=== PATIENT | female | born 1955 | race Two or more races ===

== ENCOUNTER 2017-11-10 09:29 | Outpatient (CLI) | payer OTHER | END 2017-11-10 09:45 | disposition home or self-care (01) | LOC: LAB 09:29 | DX: E55.9 Vitamin D deficiency, unspecified (principal); E11.9 Type 2 diabetes mellitus without complications; E78.00 Pure hypercholesterolemia, unspecified; N39.0 Urinary tract infection, site not specified; R82.79 Other abnormal findings on microbiological examination of urine ==

== ENCOUNTER 2017-11-24 13:54 | Outpatient (CLI) | payer OTHER | END 2017-11-24 14:04 | disposition home or self-care (01) | LOC: MAMO-SONO 13:54 | DX: Z12.31 Encounter for screening mammogram for malignant neoplasm of breast (principal); Z87.898 Personal history of other specified conditions; N61.0 Mastitis without abscess ==

== ENCOUNTER 2017-12-08 12:53 | Outpatient (CLI) | payer OTHER | END 2017-12-08 13:11 | disposition home or self-care (01) | LOC: NUCLEAR 12:53 | DX: M81.0 Age-related osteoporosis without current pathological fracture (principal) ==

== ENCOUNTER 2018-01-24 14:37 | Outpatient (CLI) | payer OTHER | END 2018-01-24 14:48 | disposition home or self-care (01) | LOC: LAB 14:37 | DX: N39.0 Urinary tract infection, site not specified (principal); R82.79 Other abnormal findings on microbiological examination of urine ==

== ENCOUNTER 2018-02-03 12:08 | Outpatient (CLI) | payer OTHER | END 2018-02-03 12:17 | disposition home or self-care (01) | LOC: LAB 12:08 | DX: E78.89 Other lipoprotein metabolism disorders (principal); M54.5 Low back pain; E03.8 Other specified hypothyroidism; E55.9 Vitamin D deficiency, unspecified; E66.8 Other obesity; G62.89 Other specified polyneuropathies; M54.31 Sciatica, right side; I10 Essential (primary) hypertension; M89.8X8 Other specified disorders of bone, other site ==

== ENCOUNTER 2018-05-24 16:50 | Outpatient (CLI) | payer OTHER | END 2018-05-24 18:13 | disposition home or self-care (01) | LOC: NST 16:50 → EDBD 16:50 → NST 18:13 | DX: Z34.83 Encounter for supervision of other normal pregnancy, third trimester (principal) ==

== ENCOUNTER → 2018-06-09 12:52 | Outpatient (CLI) | payer OTHER | END | disposition home or self-care (01) | LOC: LAB 12:52 → EDBD 12:52 | DX: E78.89 Other lipoprotein metabolism disorders (principal); M54.5 Low back pain; E03.8 Other specified hypothyroidism; E55.9 Vitamin D deficiency, unspecified; M89.9 Disorder of bone, unspecified; E66.8 Other obesity; G62.89 Other specified polyneuropathies; M54.31 Sciatica, right side; I10 Essential (primary) hypertension ==

== ENCOUNTER 2018-06-24 09:36 | Outpatient (CLI) | payer OTHER | END 2018-06-24 09:38 | disposition home or self-care (01) | LOC: SONOGRAMA 09:36 | DX: R10.84 Generalized abdominal pain (principal) ==

== ENCOUNTER 2018-11-15 09:41 | Outpatient (CLI) | payer OTHER | END 2018-11-15 13:05 | disposition HB | LOC: LAB 09:41 | DX: N95.1 Menopausal and female climacteric states (principal); L68.0 Hirsutism ==

== ENCOUNTER 2018-12-13 13:24 | Outpatient (CLI) | payer OTHER | END 2018-12-13 14:47 | disposition home or self-care (01) | LOC: MAMO-SONO 13:24 | DX: Z12.31 Encounter for screening mammogram for malignant neoplasm of breast (principal); Z87.898 Personal history of other specified conditions; N64.89 Other specified disorders of breast ==

== ENCOUNTER 2019-01-12 10:03 | Outpatient (CLI) | payer OTHER | END 2019-01-12 10:42 | disposition home or self-care (01) | LOC: LAB 10:03 | DX: E78.49 Other hyperlipidemia (principal); M54.5 Low back pain; E03.8 Other specified hypothyroidism; E55.9 Vitamin D deficiency, unspecified; M89.8X8 Other specified disorders of bone, other site; E66.8 Other obesity; G62.89 Other specified polyneuropathies; M54.31 Sciatica, right side; I10 Essential (primary) hypertension ==

== ENCOUNTER 2019-03-15 14:43 | Outpatient (CLI) | payer OTHER | END 2019-03-15 14:48 | disposition home or self-care (01) | LOC: LAB 14:43 | DX: N39.0 Urinary tract infection, site not specified (principal) ==

== ENCOUNTER 2019-04-17 13:09 | Outpatient (CLI) | payer OTHER | END 2019-04-17 13:15 | disposition home or self-care (01) | LOC: LAB 13:09 | DX: E78.49 Other hyperlipidemia (principal); M54.5 Low back pain; E03.8 Other specified hypothyroidism; E55.9 Vitamin D deficiency, unspecified; M89.8X8 Other specified disorders of bone, other site; E66.8 Other obesity; G62.89 Other specified polyneuropathies; M54.31 Sciatica, right side; I10 Essential (primary) hypertension; Z12.11 Encounter for screening for malignant neoplasm of colon; D64.89 Other specified anemias; N95.1 Menopausal and female climacteric states; C51.9 Malignant neoplasm of vulva, unspecified; N30.00 Acute cystitis without hematuria; A64 Unspecified sexually transmitted disease; R97.8 Other abnormal tumor markers; R79.89 Other specified abnormal findings of blood chemistry ==

== ENCOUNTER 2019-07-26 11:41 | Outpatient (CLI) | payer OTHER | END 2019-07-26 11:46 | disposition home or self-care (01) | LOC: LAB 11:41 | DX: E78.49 Other hyperlipidemia (principal); M54.5 Low back pain; E03.8 Other specified hypothyroidism; E55.9 Vitamin D deficiency, unspecified; M89.8X8 Other specified disorders of bone, other site; E66.8 Other obesity; G62.89 Other specified polyneuropathies; M54.31 Sciatica, right side; I10 Essential (primary) hypertension ==

== ENCOUNTER 2019-10-25 12:03 | Outpatient (CLI) | payer OTHER | END 2019-10-25 12:11 | disposition home or self-care (01) | LOC: LAB 12:03 | DX: E78.89 Other lipoprotein metabolism disorders (principal); M54.5 Low back pain; E03.8 Other specified hypothyroidism; E55.9 Vitamin D deficiency, unspecified; M89.8X8 Other specified disorders of bone, other site; E66.8 Other obesity; G62.89 Other specified polyneuropathies; I10 Essential (primary) hypertension ==

== ENCOUNTER 2020-01-24 12:37 | Outpatient (CLI) | payer OTHER | END 2020-01-24 12:42 | disposition home or self-care (01) | LOC: LAB 12:37 | DX: E78.89 Other lipoprotein metabolism disorders (principal); M54.5 Low back pain; E03.8 Other specified hypothyroidism; E55.9 Vitamin D deficiency, unspecified; M89.8X8 Other specified disorders of bone, other site; E66.8 Other obesity; G62.89 Other specified polyneuropathies; M54.31 Sciatica, right side; I10 Essential (primary) hypertension; N39.0 Urinary tract infection, site not specified ==

== ENCOUNTER → 2020-01-24 | Outpatient (CLI) | payer OTHER | END | disposition home or self-care (01) | LOC: MAMO-SONO 13:56 | DX: Z12.31 Encounter for screening mammogram for malignant neoplasm of breast (principal); Z87.898 Personal history of other specified conditions; N60.11 Diffuse cystic mastopathy of right breast; N60.12 Diffuse cystic mastopathy of left breast ==

== ENCOUNTER 2020-03-06 12:46 | Outpatient (CLI) | payer OTHER | END 2020-03-06 12:49 | disposition home or self-care (01) | LOC: LAB 12:46 | DX: R53.1 Weakness (principal) ==

== ENCOUNTER 2020-03-19 13:25 | Outpatient (CLI) | payer OTHER | END 2020-03-19 13:27 | disposition home or self-care (01) | LOC: NUCLEAR 13:25 | PROVIDERS: ATTEND Obstetrics & Gynecology | DX: M81.0 Age-related osteoporosis without current pathological fracture (principal) ==

== ENCOUNTER 2020-05-01 13:35 | Outpatient (CLI) | payer OTHER | END 2020-05-01 13:40 | disposition home or self-care (01) | LOC: LAB 13:35 | PROVIDERS: ATTEND Internal Medicine | DX: E78.89 Other lipoprotein metabolism disorders (principal); M54.5 Low back pain; E03.8 Other specified hypothyroidism; E55.9 Vitamin D deficiency, unspecified; M89.8X8 Other specified disorders of bone, other site; E66.8 Other obesity; M54.31 Sciatica, right side; I10 Essential (primary) hypertension; N39.0 Urinary tract infection, site not specified; G62.89 Other specified polyneuropathies; Z12.11 Encounter for screening for malignant neoplasm of colon; D64.89 Other specified anemias; E11.9 Type 2 diabetes mellitus without complications; E78.00 Pure hypercholesterolemia, unspecified ==

== ENCOUNTER 2020-09-04 12:23 | Outpatient (CLI) | payer OTHER | END 2020-09-04 15:00 | disposition home or self-care (01) | LOC: LAB 12:23 | PROVIDERS: ATTEND Internal Medicine | DX: E78.89 Other lipoprotein metabolism disorders (principal); M54.5 Low back pain; E03.8 Other specified hypothyroidism; E55.9 Vitamin D deficiency, unspecified; M89.8X8 Other specified disorders of bone, other site; E66.8 Other obesity; G62.89 Other specified polyneuropathies; M54.31 Sciatica, right side; I10 Essential (primary) hypertension; N39.0 Urinary tract infection, site not specified ==

== ENCOUNTER 2020-09-30 13:21 | Outpatient (CLI) | payer OTHER | END 2020-09-30 13:26 | disposition home or self-care (01) | LOC: LAB 13:21 | PROVIDERS: ATTEND Obstetrics & Gynecology | DX: N95.1 Menopausal and female climacteric states (principal); L68.0 Hirsutism ==

== ENCOUNTER 2020-12-04 13:21 | Outpatient (CLI) | payer OTHER | END 2020-12-04 13:25 | disposition home or self-care (01) | LOC: LAB 13:21 | PROVIDERS: ATTEND Internal Medicine | DX: L71.8 Other rosacea (principal); D25.2 Subserosal leiomyoma of uterus; N39.0 Urinary tract infection, site not specified; I10 Essential (primary) hypertension; M54.31 Sciatica, right side; G62.89 Other specified polyneuropathies; E66.8 Other obesity; M89.8X0 Other specified disorders of bone, multiple sites; E55.9 Vitamin D deficiency, unspecified; E03.8 Other specified hypothyroidism; M54.5 Low back pain; E78.89 Other lipoprotein metabolism disorders ==

== ENCOUNTER 2021-03-14 13:46 | Outpatient (CLI) | payer OTHER | END 2021-03-14 13:50 | disposition home or self-care (01) | LOC: LAB 13:46 | PROVIDERS: ATTEND Internal Medicine | DX: E78.9 Disorder of lipoprotein metabolism, unspecified (principal); E03.9 Hypothyroidism, unspecified; E55.9 Vitamin D deficiency, unspecified; E66.8 Other obesity; I10 Essential (primary) hypertension; N39.0 Urinary tract infection, site not specified; D25.2 Subserosal leiomyoma of uterus; M54.5 Low back pain; M89.9 Disorder of bone, unspecified; G62.9 Polyneuropathy, unspecified; M54.31 Sciatica, right side; L71.8 Other rosacea ==

== ENCOUNTER 2021-03-17 14:07 | Outpatient (CLI) | payer OTHER | END 2021-03-17 14:16 | disposition home or self-care (01) | LOC: MAMO-SONO 14:07 | PROVIDERS: ATTEND Obstetrics & Gynecology | DX: Z12.31 Encounter for screening mammogram for malignant neoplasm of breast (principal); N61.0 Mastitis without abscess ==

== ENCOUNTER → 2021-06-27 09:48 | Outpatient (CLI) | payer OTHER | END | disposition home or self-care (01) | LOC: LAB 09:48 | PROVIDERS: ATTEND Internal Medicine | DX: E78.89 Other lipoprotein metabolism disorders (principal); M54.59 Other low back pain; E03.8 Other specified hypothyroidism; E55.9 Vitamin D deficiency, unspecified; M89.8X8 Other specified disorders of bone, other site; E66.8 Other obesity; G62.89 Other specified polyneuropathies; M54.31 Sciatica, right side; I10 Essential (primary) hypertension; N39.0 Urinary tract infection, site not specified; L71.8 Other rosacea; D25.2 Subserosal leiomyoma of uterus ==

== ENCOUNTER 2021-10-09 13:07 | Outpatient (CLI) | payer OTHER | END 2021-10-09 13:12 | disposition home or self-care (01) | LOC: LAB 13:07 | PROVIDERS: ATTEND Internal Medicine | DX: D25.2 Subserosal leiomyoma of uterus (principal); L71.8 Other rosacea; M54.31 Sciatica, right side; M54.59 Other low back pain; E03.8 Other specified hypothyroidism; E55.9 Vitamin D deficiency, unspecified ==

== ENCOUNTER 2022-01-05 13:16 | Outpatient (CLI) | payer OTHER | END 2022-01-05 13:17 | disposition home or self-care (01) | LOC: LAB 13:16 | PROVIDERS: ATTEND Internal Medicine | DX: D25.2 Subserosal leiomyoma of uterus (principal); L71.8 Other rosacea; M54.31 Sciatica, right side; M54.59 Other low back pain; E03.9 Hypothyroidism, unspecified; E55.9 Vitamin D deficiency, unspecified ==

== ENCOUNTER 2022-01-21 13:52 | Outpatient (CLI) | payer OTHER | END 2022-01-21 13:59 | disposition home or self-care (01) | LOC: LAB 13:52 | PROVIDERS: ATTEND Obstetrics & Gynecology | DX: N39.0 Urinary tract infection, site not specified (principal) ==

== ENCOUNTER 2022-04-16 16:27 | Outpatient (CLI) | payer OTHER | END 2022-04-16 16:31 | disposition home or self-care (01) | LOC: LAB 16:27 | PROVIDERS: ATTEND Internal Medicine | DX: D25.2 Subserosal leiomyoma of uterus (principal); L71.8 Other rosacea; M54.31 Sciatica, right side; M54.50 Low back pain, unspecified; E03.9 Hypothyroidism, unspecified; E55.9 Vitamin D deficiency, unspecified; N39.0 Urinary tract infection, site not specified ==

== ENCOUNTER 2022-04-30 13:17 | Outpatient (CLI) | payer OTHER | END 2022-04-30 14:07 | disposition home or self-care (01) | LOC: MAMO-SONO 13:17 | PROVIDERS: ATTEND Obstetrics & Gynecology | DX: Z12.31 Encounter for screening mammogram for malignant neoplasm of breast (principal); N60.11 Diffuse cystic mastopathy of right breast ==

== ENCOUNTER 2022-07-16 13:16 | Outpatient (CLI) | payer OTHER | END 2022-07-16 13:34 | disposition home or self-care (01) | LOC: LAB 13:16 | PROVIDERS: ATTEND Internal Medicine | DX: D25.2 Subserosal leiomyoma of uterus (principal); L71.8 Other rosacea; M54.31 Sciatica, right side; M54.50 Low back pain, unspecified; E03.9 Hypothyroidism, unspecified; E55.9 Vitamin D deficiency, unspecified; N39.0 Urinary tract infection, site not specified ==

== ENCOUNTER 2022-10-19 12:25 | Outpatient (CLI) | payer OTHER | END 2022-10-19 12:26 | disposition home or self-care (01) | LOC: LAB 12:25 | PROVIDERS: ATTEND Obstetrics & Gynecology | DX: L68.0 Hirsutism (principal); N95.1 Menopausal and female climacteric states ==

== ENCOUNTER 2022-11-11 11:40 | Outpatient (CLI) | payer OTHER | END 2022-11-11 11:49 | disposition home or self-care (01) | LOC: LAB 11:40 | PROVIDERS: ATTEND Internal Medicine | DX: D25.2 Subserosal leiomyoma of uterus (principal); L71.8 Other rosacea; M54.31 Sciatica, right side; M54.59 Other low back pain; E03.9 Hypothyroidism, unspecified; E55.9 Vitamin D deficiency, unspecified; N39.0 Urinary tract infection, site not specified ==

== ENCOUNTER 2023-02-10 12:59 | Outpatient (CLI) | payer OTHER | END 2023-02-10 13:04 | disposition home or self-care (01) | LOC: LAB 12:59 | PROVIDERS: ATTEND Internal Medicine | DX: D25.2 Subserosal leiomyoma of uterus (principal); L71.8 Other rosacea; M54.31 Sciatica, right side; M54.59 Other low back pain; E03.9 Hypothyroidism, unspecified; E55.9 Vitamin D deficiency, unspecified; N39.0 Urinary tract infection, site not specified ==

== ENCOUNTER 2023-05-10 10:58 | Outpatient (CLI) | payer OTHER | END 2023-05-10 11:01 | disposition home or self-care (01) | LOC: LAB 10:58 | PROVIDERS: ATTEND Internal Medicine | DX: D25.2 Subserosal leiomyoma of uterus (principal); L71.8 Other rosacea; M54.31 Sciatica, right side; M54.50 Low back pain, unspecified; E03.9 Hypothyroidism, unspecified; E55.9 Vitamin D deficiency, unspecified; N39.0 Urinary tract infection, site not specified ==

== ENCOUNTER 2023-09-08 14:34 | Outpatient (CLI) | payer OTHER | END 2023-09-08 14:49 | disposition home or self-care (01) | LOC: TOM 14:34 | PROVIDERS: ATTEND General Practice | DX: R22.42 Localized swelling, mass and lump, left lower limb (principal) ==

== ENCOUNTER 2023-09-23 12:39 | Outpatient (CLI) | payer OTHER ==
[2023-09-23 13:21] LABS: HEMATOCRIT 38.6 % (36.0-45.00); HEMOGLOBIN 13.3 g/dL (12.0-15.00); MEAN CELL VOLUME 95.1 fL (80.00-100.00); MEAN CORPUSCULAR HEMOGLOBIN 32.9 pg (27.00-32.0); MEAN CORPUSCULAR HGB CONC 34.6 g/dl (32.0-36.0); PLATELET COUNT 234 K/uL (150-450); RED BLOOD COUNT 4.06 M/uL (4.00-6.00); RED CELL DISTRIBUTION WIDTH 12.7 % (11.5-14.5)
[2023-09-23 13:24] LABS: PH,URINE 6.5 (5.0-8.0); URINE APPEARANCE Cloudy; URINE BILIRRUBIN Negative (NEGATIVE); URINE BLOOD Negative; URINE COLOR Dark Yellow; URINE GLUCOSE Negative (NEGATIVE); URINE LEUKOCYTE Trace; URINE NITRATE Negative; URINE PROTEIN Negative (NEGATIVE)
[2023-09-23 13:25] LABS: URINE BACTERIA 2436.7 uL (0.0-1933); URINE EPITHELIAL CELLS 116.5 uL (0.0-38.8); URINE RBC 16.3 uL (0.0-20.8)
[2023-09-23 13:37] LABS: URINE WBC 46.3 uL (0.0-23.2)
[2023-09-23 14:32] LABS: T3 TOTAL 0.859 ng/ml (0.846-2.02); VITAMIN D3 25 HYDROXY 100.3 ng/ml (30-120)
[2023-09-23 14:51] LABS: ALBUMIN 4.1 gm/dL (3.4-5.0); BILIRUBIN TOTAL 0.39 mg/dL (0.3-1.2); CALCIUM 9.4 mg/dL (8.5-10.1); CHOL HDL RATIO 4.5 (0-5.0); CREATININE SERUM 0.98 mg/dL (0.55-1.02); FREE TRIODOTIRONINE 1.89 pg/ml (2.18-3.98); GFR 56.78; GLOBULINA 3.6 G/DL (2.4-3.5); POTASSIUM 3.94 mEq/L (3.5-5.1); T4 TOTAL 10.47 UG/DL (4.8-13.9); TOTAL PROTEIN 7.7 gm/dL (6.4-8.2); TSH 3.09 uIU/mL (0.358-3.74)
[2023-09-25 12:04] LABS: hav igm Negative (Negative); hcv Non Reactive (Non Reactive); hep b c Negative (Negative)
== END 2023-09-23 12:40 | disposition home or self-care (01) ==
LOC: LAB 12:39
PROVIDERS: ATTEND Internal Medicine
DX: D25.2 Subserosal leiomyoma of uterus (principal); L71.8 Other rosacea; M54.31 Sciatica, right side; M54.59 Other low back pain; E03.9 Hypothyroidism, unspecified; E55.9 Vitamin D deficiency, unspecified; N39.0 Urinary tract infection, site not specified

== ENCOUNTER 2023-10-12 13:05 | Outpatient (CLI) | payer OTHER | END 2023-10-12 13:36 | disposition home or self-care (01) | LOC: MAMO-SONO 13:05 | PROVIDERS: ATTEND Obstetrics & Gynecology | DX: N60.11 Diffuse cystic mastopathy of right breast (principal); N60.12 Diffuse cystic mastopathy of left breast; Z12.31 Encounter for screening mammogram for malignant neoplasm of breast ==

== ENCOUNTER 2023-11-16 09:41 | Outpatient (CLI) | payer OTHER | END 2023-11-16 09:49 | disposition home or self-care (01) | LOC: SONOGRAMA 09:41 | PROVIDERS: ATTEND Obstetrics & Gynecology | DX: R10.12 Left upper quadrant pain (principal) ==

== ENCOUNTER 2023-11-19 13:03 | Outpatient (CLI) | payer OTHER | END 2023-11-19 13:05 | disposition home or self-care (01) | LOC: NUCLEAR 13:03 | PROVIDERS: ATTEND Obstetrics & Gynecology | DX: M81.0 Age-related osteoporosis without current pathological fracture (principal) ==

== ENCOUNTER 2023-12-15 13:59 | Outpatient (CLI) | payer OTHER ==
[2023-12-15 15:09] LABS: PH,URINE 6.5 (5.0-8.0); URINE APPEARANCE Clear; URINE BILIRRUBIN Negative (NEGATIVE); URINE BLOOD Negative; URINE COLOR Yellow; URINE GLUCOSE Negative (NEGATIVE); URINE LEUKOCYTE Negative; URINE NITRATE Negative; URINE PROTEIN Negative (NEGATIVE); URINE UROBILINOGEN 0.2 E.U./dl
[2023-12-15 15:10] LABS: URINE BACTERIA 419.5 uL (0.0-1933); URINE EPITHELIAL CELLS 32.9 uL (0.0-38.8); URINE RBC 5.1 uL (0.0-20.8); URINE WBC 5.2 uL (0.0-23.2)
[2023-12-15 15:15] LABS: HEMATOCRIT 35.7 % (36.0-45.00); HEMOGLOBIN 12.3 g/dL (12.0-15.00); MEAN CELL VOLUME 94.4 fL (80.00-100.00); MEAN CORPUSCULAR HEMOGLOBIN 32.4 pg (27.00-32.0); MEAN CORPUSCULAR HGB CONC 34.4 g/dl (32.0-36.0); PLATELET COUNT 213 K/uL (150-450); RED BLOOD COUNT 3.78 M/uL (4.00-6.00); RED CELL DISTRIBUTION WIDTH 12.7 % (11.5-14.5)
[2023-12-15 15:59] LABS: ALBUMIN 3.7 gm/dL (3.4-5.0); BILIRUBIN TOTAL 0.34 mg/dL (0.3-1.2); CALCIUM 9.4 mg/dL (8.5-10.1); CHOL HDL RATIO 3.7 (0-5.0); CREATININE SERUM 0.89 mg/dL (0.55-1.02); GFR 63.46; GLOBULINA 3.6 G/DL (2.4-3.5); POTASSIUM 4.09 mEq/L (3.5-5.1); T4 TOTAL 12.13 UG/DL (4.8-13.9); TOTAL PROTEIN 7.3 gm/dL (6.4-8.2); TSH 1.55 uIU/mL (0.358-3.74)
== END 2023-12-15 14:19 | disposition home or self-care (01) ==
LOC: LAB 13:59
PROVIDERS: ATTEND Internal Medicine
DX: L68.0 Hirsutism (principal); N95.1 Menopausal and female climacteric states; R10.12 Left upper quadrant pain; Z12.11 Encounter for screening for malignant neoplasm of colon; R97.8 Other abnormal tumor markers; K85.90 Acute pancreatitis without necrosis or infection, unspecified; D25.2 Subserosal leiomyoma of uterus; L71.8 Other rosacea; M54.31 Sciatica, right side; E03.9 Hypothyroidism, unspecified; E55.9 Vitamin D deficiency, unspecified; N39.0 Urinary tract infection, site not specified

== ENCOUNTER 2024-03-22 10:34 | Outpatient (CLI) | payer OTHER ==
[2024-03-22 11:08] LABS: HEMATOCRIT 36.6 % (36.0-45.00); HEMOGLOBIN 12.5 g/dL (12.0-15.00); MEAN CELL VOLUME 96.4 fL (80.00-100.00); MEAN CORPUSCULAR HEMOGLOBIN 32.9 pg (27.00-32.0); MEAN CORPUSCULAR HGB CONC 34.1 g/dl (32.0-36.0); PLATELET COUNT 220 K/uL (150-450); RED CELL DISTRIBUTION WIDTH 12.1 % (11.5-14.5)
[2024-03-22 11:12] LABS: PH,URINE 7.5 (5.0-8.0); URINE APPEARANCE Turbid; URINE BILIRRUBIN Negative (NEGATIVE); URINE BLOOD Negative; URINE COLOR Yellow; URINE GLUCOSE Negative (NEGATIVE); URINE LEUKOCYTE Negative; URINE NITRATE Negative; URINE PROTEIN Negative (NEGATIVE); URINE UROBILINOGEN 0.2 E.U./dl
[2024-03-22 11:17] LABS: URINE BACTERIA 724.4 uL (0.0-1933); URINE EPITHELIAL CELLS 51.7 uL (0.0-38.8); URINE RBC 9.1 uL (0.0-20.8); URINE WBC 13.5 uL (0.0-23.2)
[2024-03-22 11:35] LABS: ALBUMIN 3.7 gm/dL (3.4-5.0); BILIRUBIN TOTAL 0.32 mg/dL (0.3-1.2); CALCIUM 9.4 mg/dL (8.5-10.1); CHOL HDL RATIO 3.8 (0-5.0); CREATININE SERUM 0.98 mg/dL (0.55-1.02); GFR 56.61; GLOBULINA 3.7 G/DL (2.4-3.5); POTASSIUM 4.02 mEq/L (3.5-5.1); TOTAL PROTEIN 7.4 gm/dL (6.4-8.2)
== END 2024-03-22 10:41 | disposition home or self-care (01) ==
LOC: LAB 10:34
PROVIDERS: ATTEND Internal Medicine
DX: D25.2 Subserosal leiomyoma of uterus (principal); L71.8 Other rosacea; M54.31 Sciatica, right side; E03.9 Hypothyroidism, unspecified; E55.9 Vitamin D deficiency, unspecified; N39.0 Urinary tract infection, site not specified

== ENCOUNTER 2024-06-29 13:21 | Outpatient (CLI) | payer OTHER ==
[2024-06-29 14:09] LABS: HEMATOCRIT 37.4 % (36.0-45.00); HEMOGLOBIN 12.7 g/dL (12.0-15.00); MEAN CELL VOLUME 96.4 fL (80.00-100.00); MEAN CORPUSCULAR HEMOGLOBIN 32.8 pg (27.00-32.0); PLATELET COUNT 232 K/uL (150-450); RED BLOOD COUNT 3.89 M/uL (4.00-6.00); URINE APPEARANCE Clear; URINE BILIRRUBIN Negative (NEGATIVE); URINE BLOOD Negative; URINE COLOR Yellow; URINE GLUCOSE Negative (NEGATIVE); URINE KETONE Negative (NEGATIVE); URINE LEUKOCYTE Trace; URINE NITRATE Negative; URINE PROTEIN Negative (NEGATIVE); URINE UROBILINOGEN 0.2 E.U./dl
[2024-06-29 14:10] LABS: URINE BACTERIA 1230.8 uL (0.0-1933); URINE EPITHELIAL CELLS 73.9 uL (0.0-38.8); URINE RBC 7.7 uL (0.0-20.8); URINE WBC 10.8 uL (0.0-23.2)
[2024-06-29 14:34] LABS: URINE CAST 0.15 uL (0.0-1.40)
[2024-06-29 15:04] LABS: BILIRUBIN TOTAL 0.28 mg/dL (0.3-1.2); CALCIUM 9.7 mg/dL (8.5-10.1); CHOL HDL RATIO 4.1 (0-5.0); CREATININE SERUM 0.83 mg/dL (0.55-1.02); GFR 68.57; GLOBULINA 3.6 G/DL (2.4-3.5); POTASSIUM 4.33 mEq/L (3.5-5.1); T4 TOTAL 11.04 UG/DL (4.8-13.9); TOTAL PROTEIN 7.6 gm/dL (6.4-8.2); TSH 1.68 uIU/mL (0.358-3.74)
== END 2024-06-29 13:24 | disposition home or self-care (01) ==
LOC: LAB 13:21
PROVIDERS: ATTEND Internal Medicine
DX: D25.2 Subserosal leiomyoma of uterus (principal); L71.8 Other rosacea; M54.31 Sciatica, right side; E03.9 Hypothyroidism, unspecified; E55.9 Vitamin D deficiency, unspecified

== ENCOUNTER 2024-07-18 13:07 | Outpatient (CLI) | payer OTHER ==
[2024-07-18 13:51] LABS: HEMATOCRIT 38.2 % (36.0-45.00); HEMOGLOBIN 13.3 g/dL (12.0-15.00); MEAN CELL VOLUME 96.7 fL (80.00-100.00); MEAN CORPUSCULAR HEMOGLOBIN 33.5 pg (27.00-32.0); MEAN CORPUSCULAR HGB CONC 34.7 g/dl (32.0-36.0); PLATELET COUNT 243 K/uL (150-450); RED BLOOD COUNT 3.95 M/uL (4.00-6.00); RED CELL DISTRIBUTION WIDTH 12.7 % (11.5-14.5)
[2024-07-20 09:08] LABS: ANTI THYROID PEROXIDASE 14 IU/mL (0-34)
[2024-07-20 13:06] LABS: IMMUNOGLOBULIN G 1229 mg/dL (586-1602)
[2024-07-23 22:09] LABS: TRYPTASE 9.7 ug/L (2.2-13.2)
[2024-07-26 15:04] LABS: IMMUNOGLOBIN IGE 76 IU/mL (6-495)
== END 2024-07-18 13:09 | disposition home or self-care (01) ==
LOC: LAB 13:07
PROVIDERS: ATTEND Allergy & Immunology Allergy
DX: L50.0 Allergic urticaria (principal); L29.9 Pruritus, unspecified; E03.2 Hypothyroidism due to medicaments and other exogenous substances

== ENCOUNTER 2025-01-10 14:02 | Outpatient (CLI) | payer OTHER | END 2025-01-10 14:09 | disposition home or self-care (01) | LOC: MAMO-SONO 14:02 | PROVIDERS: ATTEND Obstetrics & Gynecology | DX: N60.11 Diffuse cystic mastopathy of right breast (principal); N60.12 Diffuse cystic mastopathy of left breast; Z12.31 Encounter for screening mammogram for malignant neoplasm of breast ==

== ENCOUNTER 2025-02-22 12:58 | Outpatient (CLI) | payer OTHER ==
[2025-02-22 14:23] LABS: BASO % 0.5 % (0.1-1.2); EOS % 1.6 % (0.7-7.0); HEMATOCRIT 34.2 % (34.1-44.9); HEMOGLOBIN 11.5 g/dL (11.2-15.7); LYMPH # 1.98 (1.18-3.74); LYMPH % 31.6 % (19.3-53.1); MEAN CORPUSCULAR HEMOGLOBIN 31.8 pg (25.6-32.2); NEUT # 3.35 (1.56-6.13); NEUT % 53.3 % (34.0-71.1); PLATELET COUNT 228 K/uL (163-369); RED BLOOD COUNT 3.62 M/uL (3.93-5.22); RED CELL DISTRIBUTION WIDTH 11.9 % (11.6-14.4)
[2025-02-22 14:27] LABS: MONO % 12.8 % (4.7-12.5)
[2025-02-24 13:08] LABS: IMMUNOGLOBULIN G 1236 mg/dL (586-1602)
== END 2025-02-22 13:10 | disposition home or self-care (01) ==
LOC: LAB 12:58
PROVIDERS: ATTEND Allergy & Immunology Allergy
DX: L50.0 Allergic urticaria (principal); L29.9 Pruritus, unspecified; H10.45 Other chronic allergic conjunctivitis

== ENCOUNTER 2025-04-18 13:52 | Outpatient (CLI) | payer OTHER ==
[2025-04-18 14:23] LABS: BASO % 0.8 % (0.1-1.2); EOS # 0.14 (0.04-0.54); EOS % 2.7 % (0.7-7.0); LYMPH # 1.80 (1.18-3.74); LYMPH % 34.9 % (19.3-53.1); MEAN PLATELET VOLUME 11.20 fl (9.4-12.4); MONO # 0.52 (0.24-0.82); MONO % 10.1 % (4.7-12.5); NEUT # 2.65 (1.56-6.13); NEUT % 51.3 % (34.0-71.1); RED CELL DISTRIBUTION WIDTH 11.7 % (11.6-14.4)
[2025-04-18 14:26] LABS: URINE APPEARANCE Clear; URINE BILIRRUBIN Negative (NEGATIVE); URINE BLOOD Negative; URINE COLOR Yellow; URINE GLUCOSE Negative (NEGATIVE); URINE KETONE Negative (NEGATIVE); URINE LEUKOCYTE Negative; URINE NITRATE Negative; URINE PROTEIN Negative (NEGATIVE); URINE UROBILINOGEN 0.2 E.U./dl
[2025-04-18 14:31] LABS: URINE BACTERIA 561.4 uL (0.0-1933); URINE EPITHELIAL CELLS 24.2 uL (0.0-38.8); URINE RBC 7.4 uL (0.0-20.8); URINE WBC 5.2 uL (0.0-23.2)
[2025-04-18 14:41] LABS: URINE CAST 0.00 uL (0.0-1.40)
[2025-04-18 15:24] LABS: ALT/SGPT 27.0 U/L (12-78); AST/SGOT 22.0 U/L (15-37); BILIRUBIN TOTAL 0.37 mg/dL (0.3-1.2); BUN CREA RATIO 16.0 (7.0-25.0); CHOL HDL RATIO 4.0 (0-5.0); CREATININE SERUM 0.9 mg/dL (0.55-1.02); GFR 62.26; GLOBULINA 3.7 G/DL (2.4-3.5); GLUCOSE FASTING 83.0 mg/dL (65-100); HDL 41.0 mg/dl (40-60); LDL 87.0 mg/dl (0-130); OSMOLALITY SERUM 285.0 MOSM/KG (275-295); VLDL 36.0 (0-39)
== END 2025-04-18 13:58 | disposition home or self-care (01) ==
LOC: LAB 13:52
PROVIDERS: ATTEND Internal Medicine
DX: D25.2 Subserosal leiomyoma of uterus (principal); L71.8 Other rosacea; M54.31 Sciatica, right side; E03.9 Hypothyroidism, unspecified; E55.9 Vitamin D deficiency, unspecified

== ENCOUNTER 2025-09-17 10:22 | Emergency (ER) | payer OTHER ==
[~2025-09-17] VITALS: Ht 165.1 cm; Wt 68.0 kg
[2025-09-17] MEDS ORDERED: SYNTHROID100 MCG PO (12:37)
[2025-09-17] MEDS ORDERED: FENOFIBRIC ACID35 MG (12:37)
[2025-09-17] MEDS ORDERED: SIMVASTATIN5 MG (12:38)
[2025-09-17] MEDS ORDERED: GUAIFENESIN 200 MG/10 ML BLIST.PACK PO ONE (15:15)
[2025-09-17] MEDS ORDERED: 0.9 % SODIUM CHLORIDE 1,000 ML IV ONE (15:15)
[2025-09-17] MEDS ORDERED: METHYLPREDNISOLONE SOD SUCC 125 MG VIAL IV ONE (15:15)
[2025-09-17] MEDS ORDERED: IPRATROPIUM BROMIDE 0.5 MG/2.5 ML AMPUL.NEB IH ONE (15:15)
[2025-09-17] MEDS ORDERED: AZITHROMYCIN 500 MG VIAL IV ONE (15:15)
[2025-09-17] MEDS ORDERED: LEVALBUTEROL HCL 1.25 MG/3 ML SOLUTION IH SCH (15:15)
[2025-09-17 15:42] LABS: BASO % 0.7 % (0.1-1.2); EOS # 0.22 (0.04-0.54); EOS % 2.6 % (0.7-7.0); LYMPH # 3.11 (1.18-3.74); LYMPH % 36.1 % (19.3-53.1); MEAN PLATELET VOLUME 10.60 fl (9.4-12.4); MONO # 1.02 (0.24-0.82); MONO % 11.8 % (4.7-12.5); NEUT # 4.17 (1.56-6.13); NEUT % 48.5 % (34.0-71.1); RED CELL DISTRIBUTION WIDTH 12.1 % (11.6-14.4)
[2025-09-17 16:04] LABS: ERYTHROCYTE SEDIMENTATION RATE 20 mm/hr (0-30)
[2025-09-17 16:09] LABS: ALT/SGPT 32 U/L (12-78); AST/SGOT 18 U/L (15-37); BILIRUBIN TOTAL 0.20 mg/dL (0.3-1.2); BUN CREA RATIO 20 (7.0-25.0); CREATININE SERUM 0.88 mg/dL (0.55-1.02); GFR 63.90; GLOBULINA 3.8 G/DL (2.4-3.5); GLUCOSE FASTING 92 mg/dL (65-100); OSMOLALITY SERUM 287 MOSM/KG (275-295)
[2025-09-17 16:14] LABS: COVID-19 AG NEGATIVE (NEGATIVE)
[2025-09-17] MEDS ORDERED: ACETAMINOPHEN 500 MG GEL..CAP PO ONE (17:15)
[2025-09-17] MEDS ORDERED: ZITHROMAX200 MG PO (19:09)
[2025-09-17] MEDS ORDERED: MEDROLPACK PO (19:09)
[2025-09-17] MEDS ORDERED: XOPENEX CO1.25 MG/0. IH (19:09)
[2025-09-17] MEDS ORDERED: BENZONATATE100 MG PO (19:09)
== END 2025-09-17 19:39 | disposition home or self-care (01) ==
LOC: ER 10:23
DX: J98.8 Other specified respiratory disorders (principal); B34.8 Other viral infections of unspecified site; Z20.822 Contact with and (suspected) exposure to COVID-19; I10 Essential (primary) hypertension; E03.9 Hypothyroidism, unspecified
CPT/HCPCS: 36415; 71046; 82803; 94640; 96365; 96366; 99283; J0456; J7030